=== PATIENT | female | born 1990 | race Caucasian/White ===

== ENCOUNTER 2021-04-04 14:04 | Emergency (ER) | payer MEDICAID ==
[2021-04-04] MEDS ORDERED: EPINEPHrine 1 MG/ML AMP IM STA (14:16)
[2021-04-04] MEDS ORDERED: CHERRY SYRUP 10 ML UDC PO ONE (14:16)
[2021-04-04] MEDS ORDERED: diphenhydrAMINE 25 MG CAPSULE PO STA (14:16)
[2021-04-04] MEDS ORDERED: DEXAMETHASONE 10 MG/ML VIAL PO STA (14:16)
--- NOTE | 2021-04-04 14:21 | ED Physician Documentation ---
History of Present Illness - Stated complaint Stated Complaint: FACE SWELLING/BEE STINGS - History obtained from History obtained from: Patient - Additonal information Additional information: Otherwise healthy 30-year-old woman was stung several times mostly in the face by bees a few hours ago has significant facial swelling but denies throat swelling, wheezing, dizziness. Review of Systems Constitutional: denies: Fever, Chills Nose: denies: Rhinorrhea / runny nose Throat: denies: Sore throat Cardiac: denies: Chest pain / pressure, Palpitations Respiratory: denies: Dyspnea, Cough PD PAST MEDICAL HISTORY - Present Medications Home Medications: Ambulatory Orders Medication Instructions Recorded Confirmed EPINEPHrine [Epinephrine] 0.3 mg IJ ONCE PRN #2 syr 04/04/21 predniSONE [Deltasone] 60 mg PO DAILY 5 Days #15 tablet 04/04/21 - Allergies Allergies/Adverse Reactions: Allergies Allergy/AdvReac Type Severity Reaction Status Date / Time bee venom protein (honey bee) Allergy Edema Verified 04/04/21 14:30 ciprofloxacin [From Cipro] Allergy Unknown Verified 04/04/21 14:30 PD ED PE NORMAL - Vitals Vital signs reviewed: Yes - General General: Alert and oriented X 3, No acute distress - HEENT HEENT: Other (Significant bilateral periorbital edema and facial edema. Oropharynx appears normal.) - Cardiac Cardiac: RRR, No murmur - Respiratory Respiratory: No respiratory distress, Clear bilaterally - Abdomen Abdomen: Non tender - Derm Derm: Normal color, Warm and dry - Extremities Extremities: No edema, No calf tenderness / cord - Neuro Neuro: Alert and oriented X 3, Normal speech Results - Vitals Vitals: Vital Signs - 24 hr 04/04/21 04/04/21 14:10 14:43 Temperature 37.3 C Heart Rate 98 73 Respiratory 16 Rate Blood Pressure 132/79 H 112/65 O2 Saturation 100 99 Oxygen O2 Source Room air PD MEDICAL DECISION MAKING - ED course ED course: Although I do not think she has true anaphylaxis given the significant facial edema I am treating her with epinephrine, steroids, Benadryl. Departure - Departure Disposition: 01 Home, Self Care Clinical Impression: Allergic reaction to bee sting Condition: Good Record reviewed to determine appropriate education?: Yes Instructions: ED Bite Sting Insect Gen Allergic React Prescriptions: predniSONE [Deltasone] 60 mg PO DAILY 5 Days #15 tablet EPINEPHrine [Epinephrine] 0.3 mg IJ ONCE PRN #2 syr PRN Reason: Allergy Symptoms Comments: Carry the EpiPen with you at all times, if you should get stung again develop any symptoms recommend erring on the side of using the EpiPen. There are some useful YouTube videos to watch on EpiPen's to get used to the idea of having to inject yourself. Return for new or worsening symptoms. Follow-up with your [facility] care physician on return home.
[2021-04-04 15:33] VITALS: BP 105/58
== END 2021-04-04 15:15 | disposition home or self-care (01) ==
LOC: ED 14:04
DX: T63.441A Toxic effect of venom of bees, accidental (unintentional), initial encounter (principal); R22.0 Localized swelling, mass and lump, head
CPT/HCPCS: 96372; 99283; A9270